=== PATIENT | male | born 1930 | race Caucasian/White ===

== ENCOUNTER 2019-01-10 16:32 | Observation (INO) | payer MEDICARE ==
[~2019-01-10] VITALS: Ht 167.6 cm; Wt 57.2 kg
[2019-01-10 20:48] LABS: BASO % 0.2 % (0.0-2.0); EOS % 0.2 % (0-4.0); GRAN # 10.5 (1.4-6.5); GRAN % 80.6 % (42.2-75.2); LYMPH # 1.3 (1.2-3.4); LYMPH % 9.9 % (20.0-51.0); MEAN CELL VOLUME 96 fl (80.0-100.0); MEAN CORPUSCULAR HGB CONC 32 g/dl (33.0-37.0); MEAN PLATELET VOLUME 9.8 fl (7.4-10.4); MONO # 1.1 (0.1-0.6); MONO % 8.6 % (1.7-9.3); PLATELET COUNT 232 K/mm3 (130-400); RED BLOOD COUNT 2.93 M/mm3 (4.20-5.60); REDCELL DISTRIBUTION WIDTH-CV 12.8 % (11.5-14.5)
[2019-01-10 20:49] LABS: HEMATOCRIT 28.2 % (42.0-52.0); HEMOGLOBIN 9.1 g/dl (13.5-18.0); MEAN CORPUSCULAR HEMOGLOBIN 31 pg (27.0-31.0)
[2019-01-10 20:55] LABS: BILIRUBIN,TOTAL 0.4 mg/dL (0.0-1.0); CALCIUM 7.8 mg/dL (8.4-10.2); CREATININE, serum 1.01 (0.66-1.25); POTASSIUM 4.6 mmol/L (3.4-5.0); TOTAL PROTEIN 5.4 gm/dL (6.4-8.2)
[2019-01-10 21:43] VITALS: BP 135/75; PULSE 94; TEMP 98.6
--- NOTE | 2019-01-10 22:00 | NUR ---
Patient arrived on unit accompanied by [employer]BER and Tech. PT alert and oriented, follows directions and answers questions, denies dizziness. Bed alarms on, call light within reach. Will continue to monitor.
[2019-01-10] MEDS ORDERED: ASPIRIN 81M81 MG/TA2 PO (22:53)
[2019-01-10] MEDS ORDERED: PLAVIX 75MG TAB75 MG PO (22:54)
[2019-01-10] MEDS ORDERED: NORCO 325 MG-101 TAB PO (22:59)
[2019-01-10] MEDS ORDERED: IMDUR 30MG30 MG/TAB PO (23:00)
[2019-01-10] MEDS ORDERED: DOLOPHINE HCL5 MG PO (23:02)
[2019-01-10] MEDS ORDERED: LOPRESSOR 225 MG/TAB PO (23:05)
[2019-01-10] MEDS ORDERED: PROTONIX 40MG T40 MG PO (23:06)
[2019-01-10] MEDS ORDERED: ZANTAC 150MG T150 MG PO (23:07)
[2019-01-10] MEDS ORDERED: [UNRECOGNIZED DRUG - OTHER] (23:09)
[2019-01-10 23:34] VITALS: BP 128/44; PULSE 66; TEMP 97.9
[2019-01-11 03:55] VITALS: BP 149/56; PULSE 75; TEMP 98
--- NOTE | 2019-01-11 04:00 | NUR ---
When entering the room to give patient his medication and waking him up to inform him of this, patient began to yell saying "I need my pills! I've been taking them for years! Years! I need them!" Informed patient that I can get him a norco and patient was still upset but said "fine". Patient asked why he hadn't been started back up, was informed that provider will review medications in the morning but they did order [place] q4h as needed. PT stated that he "hurts all over". PT fell asleep after leaving room. Provider informed.
[2019-01-11 07:41] VITALS: BP 159/69; PULSE 78; TEMP 98.9
[2019-01-11 08:38] LABS: CALCIUM 8.4 mg/dL (8.4-10.2); CREATININE, serum 0.93 (0.66-1.25); POTASSIUM 4.6 mmol/L (3.4-5.0)
[2019-01-11 08:51] LABS: HEMATOCRIT 27.1 % (42.0-52.0); HEMOGLOBIN 8.9 g/dl (13.5-18.0)
--- NOTE | 2019-01-11 10:53 | NUR ---
Visited and listened to the patient.
[2019-01-11 11:25] VITALS: BP 147/56; PULSE 72; TEMP 97.7
--- NOTE | 2019-01-11 13:48 | NUR ---
Plan: To return home. Assess: SW met with patient about dc. Patient reports that he resides locally. Patient indicated that he has a walker with sit to stand. Patient reports that his DPOA is Eliceo Schwartz [phone]. Patient reports that his pcp is Dr. Bates. Patient indicated that his DTR will transport him home. Patient denies needing any additonal support at home. Patient reports that he is completing outpatient physical therapy. Patient reports that he obtains his RX from [facility] without difficulty. Action: No additonal needs identified. SW educated on additonal resources.
--- NOTE | 2019-01-11 13:59 | NUR ---
Pt was discharged home from hospital. All discharge instructions and paperwork was reviewed with pt and his [id number], expressed understanding and all questions answered. Saline lock removed, catheter tip intact. Dressing supplied sent home with pt. Pt to make follow up appointment. Pt was escorted out of facility by staff.
== END 2019-01-11 14:00 | disposition home or self-care (01) ==
LOC: COL.ER 16:32 → SURG 20:05
PROVIDERS: Emergency Medicine; ADMIT Surgery
DX: S81.812A Laceration without foreign body, left lower leg, initial encounter (principal); I25.10 Atherosclerotic heart disease of native coronary artery without angina pectoris; Z86.73 Personal history of transient ischemic attack (TIA), and cerebral infarction without residual deficits; I10 Essential (primary) hypertension; Z96.653 Presence of artificial knee joint, bilateral; Z96.669 Presence of unspecified artificial ankle joint; Z90.79 Acquired absence of other genital organ(s); Z79.82 Long term (current) use of aspirin; Z79.02 Long term (current) use of antithrombotics/antiplatelets; Z88.8 Allergy status to other drugs, medicaments and biological substances
CPT/HCPCS: G0378; J0690; J7030